=== PATIENT | female | born 2000 ===

== ENCOUNTER 2021-02-04 12:25 | Emergency (ER) | payer OTHER ==
[2021-02-04] MEDS ORDERED: Sodium Bicarb 50 MEQ/50 ML Abboject 8.4% SYRINGE ONE (12:31)
[2021-02-04] MEDS ORDERED: Calcium Chloride 1 GM/10 ML Abboject SYRINGE ONE (12:31)
[2021-02-04] MEDS ORDERED: EPINEPHrine 1 MG/10 ML Abboject SYRINGE ONE (12:31)
[2021-02-04] MEDS ORDERED: Atropine Sulfate 1 mg/10 ml Syringe ONE (12:31)
[2021-02-04] MEDS ORDERED: Bupivacaine PF 0.5% 30 ML VIAL ONE (12:36)
[2021-02-04] MEDS ORDERED: Bupivacaine 0.25% HCL 30 ML VIAL ONE (12:36)
[2021-02-04 13:21] LABS: Hemoglobin 11.7 g/dL (12.0-16.0); Mean Corpuscular HGB CONC 29.2 g/dL (32.0-36.0); Mean Corpuscular Hemoglobin 27.7 pg (25.0-35.0); Mean Platelet Volume 9.4 fL (7.4-10.4); Platelet Count 104 thou/uL (130-400); RBC Distribution Width 14.4 % (11.5-14.5); Red Blood Cell (RBC) Count 4.23 mill/uL (4.00-5.20)
[2021-02-04 13:34] LABS: INR-International Normal Ratio 2.7
[2021-02-04 13:43] LABS: Band 14 % (5-11); Burr Cells SLIGHT = 2-5 cells (100X) (0-1/hpf); Lymphocytes 35 % (28-48); MDiff Complete? YES; Metamyelocyte 6 % (0-0); Monocytes 7 % (0-4); Myelocyte 5 % (0-0); Neutrophil 32 % (31-61); Ovalocytes SLIGHT = 2-5 cells (100X) (0-1/hpf); Platelet Morphology Comment Appears Decreased; Polychromasia SLIGHT = 2-3 cells (100X) (0-2/hpf); Reactive Lymphocytes 1 % (0-10)
[2021-02-04 13:49] LABS: ALT (SGPT) 1407 U/L (8-55); AST (SGOT) 1455 U/L (5-34); Albumin 1.9 g/dL (3.5-5.0); Alkaline Phosphatase 72 U/L (40-100); BUN (Urea Nitrogen) 20 mg/dL (7.0-18.7); Bilirubin, Total 0.2 mg/dL (0.2-1.2); CK (CPK) 840 U/L (29-168); Calc. Creatinine Clearance 0 mL/min (70-130); Calcium 9.1 mg/dL (7.8-10.44); Chloride 110 mmol/L (98-107); Globulin 1.9 g/dL (2.4-3.5); Glucose 244 mg/dL (70-105); PTT Greater than 250.0 sec (22.9-36.1); Potassium 5.8 mmol/L (3.5-5.1); Protein, Total 3.8 g/dL (6.0-8.3); Sodium 139 mmol/L (136-145)
[2021-02-04 14:03] LABS: Carbon Dioxide Less than 8 mmol/L (22-29)
[2021-02-04 14:10] LABS: Analyzer IN Cardio ER; Chloride (VBG) 109 mmol/L (98-106); Hemoglobin (Hb) 13.7 g/dL (11.7-15.5); Potassium (VBG) 6.13 mmol/L (3.70-5.30)
[2021-02-04 14:11] LABS: Actual Bicarbonate (HCO3v) 10 mEq/L (22-28); Base Excess -30.6 mEq/L (-2.0 to +3.0); pH (venous) 6.55 (7.32-7.43)
[2021-02-04] MEDS ORDERED: DOBUTamine 500 mg/250 ml 250 ML ONE (14:16)
== END 2021-02-04 14:30 | disposition expired ==
LOC: ERS 12:25
DX: I46.9 Cardiac arrest, cause unspecified (principal); U07.1 COVID-19
CPT/HCPCS: 36415; 36416; 36430; 36556; 36680; 37195; 51702; 80053; 82550; 82553; 82805; 83605; 84484; 85025; 85610; 85730; 86850; 86900; 86901; 87040; 92950; 93306; 94002; 96365; 96366; 96375; 96376; J0171; J0461; J1250; J2997; P9016; P9048; S0020